=== PATIENT | male | born 1980 | race Caucasian/White ===

== ENCOUNTER 2016-10-25 00:49 | Emergency (ER) | payer SELFPAY ==
[~2016-10-25] VITALS: Ht 185.4 cm; Wt 104.3 kg
[2016-10-25] MEDS ORDERED: ZITHROMAX250 MG PO (02:05)
[2016-10-25] MEDS ORDERED: PREDNISONE20 M1 PO (02:05)
[2016-10-25] MEDS ORDERED: PROAIR HFA8.5 GM INH (02:05)
== END 2016-10-25 02:22 | disposition home or self-care (01) ==
LOC: ED 00:49
DX: J20.9 Acute bronchitis, unspecified (principal); F17.200 Nicotine dependence, unspecified, uncomplicated